=== PATIENT | female | born 1990 | race Caucasian/White ===

== ENCOUNTER 2017-10-03 11:01 | Emergency (ER) | payer MEDICAID ==
[2017-10-03 12:08] LABS: APPEARANCE SLT CLOUDY (CLEAR); COLOR YELLOW (YELLOW); NITRITE NEGATIVE (NEGATIVE); SPECIFIC GRAVITY 1.005 (1.005-1.020)
[2017-10-03 12:09] LABS: BACTERIA MANY /hpf (NONE SEEN); BILIRUBIN NEGATIVE (NEGATIVE); GLUCOSE NEGATIVE (NEGATIVE); KETONE NEGATIVE (NEGATIVE); MUCUS >1+ /lpf (NONE SEEN); PROTEIN NEGATIVE (NEGATIVE); RED CELLS - URINE RARE /hpf (0-5); UROBILINOGEN NORMAL (NORMAL)
== END 2017-10-03 13:21 | disposition home or self-care (01) ==
LOC: D.ER 11:01
PROVIDERS: Emergency Medicine
DX: O26.892 Other specified pregnancy related conditions, second trimester (principal); Z3A.22 22 weeks gestation of pregnancy; N89.8 Other specified noninflammatory disorders of vagina

== ENCOUNTER 2017-12-20 15:13 | Inpatient (IN) | payer MEDICAID ==
--- NOTE | ~2017-12-20 | DS ---
PATIENT:JAMAL LINTON :89 MEDICAL RECORD: [id number] DISCHARGE SUMMARY ADMISSION DATE: 12/20/17 DISCHARGE DATE: 12/22/17 DATE OF ADMISSION: 12/20/2017. DATE OF DISCHARGE: 12/22/2017. ADMISSION DIAGNOSES: 1. at term. 2. GBS positive. 3. Tobacco abuse. DISCHARGE DIAGNOSES: 1. at term. 2. GBS positive. 3. Tobacco abuse. 4. Mother delivered. PROCEDURE: Vaginal delivery. ATTENDING: Max Fernandez MD. HISTORY OF PRESENT ILLNESS: See the H&P in the chart. SUMMARY OF HOSPITALIZATION: The patient was admitted and underwent induction of labor without incident in delivery. The patient was doing well at the time of discharge with minimal to moderate lochia and adequate pain control. The patient has been counseled as far as contraception. DISCHARGE MEDICATIONS: Will include ibuprofen. The patient has been given the standard precautions. TRANSINT:[id number] Voice Confirmation ID: [id number] DOCUMENT ID: [id number] MAX FERNANDEZ MD at 1728 CC: [id number] DICTATION DATE: 02/18/18 0744 HUMAN MACHINE INTERFACE ENGINEER: 02/18/18 1333 DIS IN 12/22/17 [id number] [place] [address]
[2017-12-20 21:36] VITALS: BP 116/63; BMI 39.8
[2017-12-20] MEDS ORDERED: PEPCID20 MG PO (22:20)
[2017-12-20] MEDS ORDERED: HYDROCODON-ACE1 EAC7 (22:20)
[2017-12-20] MEDS ORDERED: AZITHROMYCIN 250 MG (22:21)
[2017-12-20] MEDS ORDERED: FLAGYL500 MG (22:21)
[2017-12-20 22:58] LABS: HEMATOCRIT 34.7 % (36.0-48.0); HEMOGLOBIN 11.6 g/dL (12-16); MCH 31.7 pg (26.0-34.0); MCHC 33.4 g/dL (31.0-37.0); MCV 94.8 fL (80.0-100.0); MEAN PLATELET VOLUME 10.4 fL (7.4-10.4); RBC 3.66 10x6/uL (4.00-5.40); WBC 12.6 10x3/uL (4.8-10.8)
[2017-12-20 23:05] LABS: APPEARANCE CLOUDY (CLEAR); BILIRUBIN NEGATIVE (NEGATIVE); COLOR YELLOW (YELLOW); EPITHELIAL CELLS 0-5 /hpf (0-5); GLUCOSE NEGATIVE (NEGATIVE); KETONE NEGATIVE (NEGATIVE); NITRITE NEGATIVE (NEGATIVE); PROTEIN NEGATIVE (NEGATIVE); UROBILINOGEN NORMAL (NORMAL); WHITE CELLS - URINE 0-5 /hpf (0-5)
[2017-12-20 23:13] LABS: UDS - AMPHET NEGATIVE QUAL (NEGATIVE); UDS - BARB NEGATIVE QUAL (NEGATIVE); UDS - BENZO NEGATIVE QUAL (NEGATIVE); UDS - COCAINE NEGATIVE QUAL (NEGATIVE); UDS - OPIATE NEGATIVE QUAL (NEGATIVE); UDS - PCP NEGATIVE QUAL (NEGATIVE); UDS - THC NEGATIVE QUAL (NEGATIVE)
[2017-12-21 12:37] VITALS: BMI 39.7
[2017-12-21 19:59] VITALS: BP 121/58
[2017-12-21 22:39] VITALS: BP 92/44
[2017-12-22 06:16] LABS: RAPID PLASMA REAGIN Non Reactive (Non Reactive)
[2017-12-22 06:53] LABS: BASOPHILS 0.1 % (0-2); EOSINOPHILS 0.9 % (0-7); HEMATOCRIT 35.7 % (36.0-48.0); HEMOGLOBIN 11.6 g/dL (12-16); IMMATURE GRANULOCYTES 0.9 % (0-5); LYMPHOCYTES 23.3 % (15-50); MCH 31.1 pg (26.0-34.0); MCHC 32.5 g/dL (31.0-37.0); MCV 95.7 fL (80.0-100.0); MONOCYTES 6.1 % (2-11); NEUTROPHILS 68.7 % (40-80); PLATELET COUNT 172 10x3/uL (130-400); RBC 3.73 10x6/uL (4.00-5.40); RDW 13.9 % (11.5-14.5); WBC 12.9 10x3/uL (4.8-10.8)
[2017-12-22 07:40] VITALS: BP 108/50
== END 2017-12-22 13:30 | disposition home or self-care (01) | DRG 775 ==
LOC: D.LD 15:13
PROVIDERS: Obstetrics & Gynecology
PROC: 10D07Z6 Extraction of Products of Conception, Vacuum, Via Natural or Artificial Opening (ICD-10-PCS; principal; 2017-12-21)
PROC: 0HQ9XZZ Repair Perineum Skin, External Approach (ICD-10-PCS; 2017-12-21)
DX: O99.824 Streptococcus B carrier state complicating childbirth (principal); Z3A.39 39 weeks gestation of pregnancy; Z37.0 Single live birth; O99.334 Smoking (tobacco) complicating childbirth; O70.0 First degree perineal laceration during delivery